=== PATIENT | male | born 1975 | race Caucasian/White ===

== ENCOUNTER 2022-10-19 03:16 | Emergency (ER) | payer MEDICARE, OTHER ==
[~2022-10-19] VITALS: Ht 172.7 cm; Wt 72.6 kg
[2022-10-19 03:32] VITALS: BP 169/109
--- NOTE | 2022-10-19 03:40 | NUR ---
CALLED DR PICKARD PER STATED BY PT PRIMARY DATA SYSTEMS ANALYST. DISTRIBUTION AGENT MD RETURNED CALL AND SPOKE WITH DR NIETO.
--- NOTE | 2022-10-19 03:40 | NUR ---
DR. 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
--- NOTE | 2022-10-19 03:46 | NUR ---
PT PT WAS TRIAGE AND SPOKEN WITH THE MD. PT DECIDED THAT HE WILL BE GOING TO [facility]IA [facility]. PT IS AMBULATORY ON [facility]. MD IS AWARE OF PT'S DECISION.
--- NOTE | 2022-10-19 03:49 | NUR ---
DR[facility] THE PHONE WITH DR. NIETO
--- NOTE | 2022-10-19 03:59 | NUR ---
DR ERWIN SPOKE WITH CHARGE NURSE JOSÉ MIGUEL AT THE [facility] TO NOTIFY THAT THE PATIENT HAVE LEFT OUR FACILITY AND HEADED OVER THERE.
--- NOTE | 2022-10-19 04:08 | NUR ---
2 [employer] OFFICERS CAME TO SEE THE PATIENT. OFFICERS WHERE INFORMED THAT THE PATIENT WENT TO [facility].
== END 2022-10-19 03:54 | disposition left against medical advice (07) ==
LOC: ER 03:23
DX: S60.212A Contusion of left wrist, initial encounter (principal); V44.9XXA Unspecified car occupant injured in collision with heavy transport vehicle or bus in traffic accident, initial encounter; Y93.89 Activity, other specified; Y92.89 Other specified places as the place of occurrence of the external cause; Y99.8 Other external cause status